=== PATIENT | female | born 1980 | race Caucasian/White ===

== ENCOUNTER 2021-03-17 08:23 | Emergency (ER) | payer OTHER ==
[~2021-03-17] VITALS: Ht 152.4 cm; Wt 68.0 kg
--- NOTE | 2021-03-17 08:23 | NUR ---
Chan HODGES via gurney to bed 04.
[2021-03-17 08:26] VITALS: BP 129/75
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
[2021-03-17] MEDS ORDERED: KETOROLAC 60 MG/2 ML VIAL IM ONE (08:35)
--- NOTE | 2021-03-17 08:45 | NUR ---
PATIENTS SON AT BEDSIDE
--- NOTE | 2021-03-17 08:49 | NUR ---
PATIENT TAKEN TO XRAY VIA W/C.
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
[2021-03-17 10:02] VITALS: BP 129/75
== END 2021-03-17 10:01 | disposition home or self-care (01) ==
LOC: MED 08:23
DX: S20.212A Contusion of left front wall of thorax, initial encounter (principal); T23.071A Burn of unspecified degree of right wrist, initial encounter; V49.3XXA Car occupant (driver) (passenger) injured in unspecified nontraffic accident, initial encounter; Y93.89 Activity, other specified; Y92.89 Other specified places as the place of occurrence of the external cause; Y99.8 Other external cause status; S29.012A Strain of muscle and tendon of back wall of thorax, initial encounter
CPT/HCPCS: 29125; 71101; 73110; 96372; 99285; J1885